=== PATIENT | female | born 1985 ===

== ENCOUNTER → 2018-01-06 | Outpatient (CLI) | payer OTHER ==
[~2018-01-06] VITALS: Ht 165.1 cm; Wt 72.6 kg
== END | disposition home or self-care (01) ==
LOC: OFIC 805 08:40
DX: J32.8 Other chronic sinusitis (principal); J34.3 Hypertrophy of nasal turbinates; R09.81 Nasal congestion; H61.23 Impacted cerumen, bilateral

== ENCOUNTER 2018-12-01 12:42 | Outpatient (CLI) | payer OTHER | END 2018-12-01 13:51 | disposition home or self-care (01) | LOC: RAD 12:42 | DX: R07.89 Other chest pain (principal) ==